=== PATIENT | female | born 1940 | race Caucasian/White ===

== ENCOUNTER 2019-10-23 02:57 | Inpatient (IN) ==
[2019-10-23] MEDS ORDERED: FENTANYL IV ONE (03:08)
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
[2019-10-23 04:06] LABS: BASO# 0.03 X1000 (0.0-0.2); BASO% 0.3 % (0.0-0.8); EOS# 0.05 X1000 (0.0-0.7); EOS% 0.5 % (0.0-10.0); HEMATOCRIT 43.1 % (37.0-47.0); HEMOGLOBIN 14.3 g/dL (12.0-16.0); IMM GRAN# 0.05 X1000 (0.0-0.04); IMM GRAN% 0.5 % (0.0-0.5); LYMPH# 1.03 X1000 (1.2-3.4); LYMPH% 9.3 % (20.5-51.1); MCH 32.6 PG (27-31); MCHC 33.2 g/dL (33-37); MCV 98.2 FL (81-99); MONO# 0.64 X1000 (0.11-0.59); MONO% 5.8 % (1.7-9.3); MPV 10.1 FL (7.4-10.4); NEUT# 9.31 X1000 (1.4-6.5); NEUT% 83.6 % (42.2-75.2); PLT 205 X1000 (130-400); RBC 4.39 XMIL (4.2-5.4); RDW 12.2 % (11.5-14.5); WBC 11.11 X1000 (4.8-10.8)
[2019-10-23 04:16] LABS: INR 0.98; PROTIME 13.1 Seconds (11.0-16.0); PTT 29.4 Seconds (22.3-41.8)
[2019-10-23] MEDS ORDERED: TYLENOL LIQUID PO ONE (04:32)
[2019-10-23] MEDS ORDERED: LASIX IV ONE (04:38)
[2019-10-23] MEDS ORDERED: KLOR-CON PO ONE (04:39)
[2019-10-23 04:55] LABS: ALB/GLOB RATIO 1.7; ALBUMIN 4.4 g/dL (3.5-5.0); ALKALINE PHOSPHATASE 80 U/L (32-104); BUN 9 mg/dL (8-22); CALCIUM 9.5 mg/dL (8.8-10.2); CREATININE 0.7 mg/dL (0.5-0.9); ESTIMATED GFR > 60; GLUCOSE 134 mg/dL (70-104); GOT 25 U/L (10-30); GPT 8 U/L (10-36); TCO2 28 mmol/L (25-35); TOTAL BILIRUBIN 0.48 mg/dL (0.20-1.00)
[2019-10-23 05:00] LABS: CHLORIDE 99 mmol/L (98-107); POTASSIUM 4.1 mmol/L (3.5-5.1); SODIUM 141 mmol/L (136-145)
[2019-10-23 05:06] LABS: AGAP 28; COSMO 282
[2019-10-23] MEDS ORDERED: DILAUDID IV ONE (05:08)
[2019-10-23 05:25] LABS: URINE SOURCE CATH
--- NOTE | 2019-10-23 05:29 | HISTORY AND PHYSICAL ---
REASON FOR ADMISSION: Right hip pain following a fall today. HISTORY OF PRESENT ILLNESS: Ms. Erica Shepard is an 79-year-old white woman who has no prior medical history of note, other than breast cancer status post bilateral mastectomy. She states that she was walking down her malhotra, which was poorly lit, and she missed her footing, fell and landed on her right side and hit her head. She denies any loss of consciousness following the fall. No antecedent cardiorespiratory symptoms before or subsequent to the fall. She managed to crawl to get her phone, called EMS and they brought her in to our facility for further evaluation. On arrival here, right hip x-ray showed a right intertrochanteric hip fracture. Dr. Clark, the orthopedic surgeon, was notified and will see patient later today. REVIEW OF SYSTEMS: The patient's only complaint is right hip pain, which was sustained immediately after the fall and she was unable to get up as a consequence of this. She also complains of vaginal pain, but no bleeding or discharge for the last several weeks. No genitourinary complaints. Other complaints of note are constipation. Otherwise, no cardiorespiratory, neurological complaints before or since this fall. ALLERGIES: No known allergies. MEDICATIONS: None other than p.r.n. MiraLAX. FAMILY HISTORY: Notable for heart disease, COPD, prostate cancer. SURGICAL HISTORY: She has had bilateral mastectomy,cholecystectomy and a right lobectomy. SOCIAL HISTORY: Lives alone. Does not smoke, drink, or use illicit drugs. LAB WORK: Chest film shows borderline increased vascular markings. X-ray for hip, see above. EKG is pending. Chemistries pending. White count is 11,000, hemoglobin and hematocrit 14 and 43, platelets 205,000; 83% neutrophils. PHYSICAL EXAM: VITAL SIGNS: Blood pressure 177/93, heart rate 105, respiratory rate 19, temperature is 98.9 degrees, she is 97% on room air. GENERAL: She is an elderly white female who appears younger than stated age. She is alert and oriented to person, place, time. Normal mood and affect. HEENT: Head is normocephalic, atraumatic. Eyes, CRUZ, EOMI. She is anicteric. Not pale. ENT and oropharyngeal exam is grossly normal. No central cyanosis noted. NECK: Supple. No JVD or carotid bruit. No thyromegaly. CHEST: Clear with auscultation, good air entry in both lung aviles. CARDIOVASCULAR: First, 2nd, and 3rd heart sounds are heard. Questionable diastolic murmur also heard. Rhythm is regular. ABDOMEN: Protuberant, soft. No tenderness or megaly. Bowel sounds are hypoactive. RECTAL: Deferred at this time. EXTREMITIES: No edema, clubbing, or peripheral cyanosis. Good distal pulse volumes, regular, symmetrical. NEUROLOGICAL: No gross focal. The patient is able to move her toes, dorsiflex and plantar flex her feet. SKIN: Intact. No breakdown, lesion, erythema. MUSCULOSKELETAL: Shows slightly externally rotated right lower extremity with slight shortening of said extremity. ASSESSMENT: At this time is 1. Right hip fracture. 2. Elevated blood pressure, probably hypertension. 3. S3 gallop, query significance. PLAN: Dr. Clark, the orthopedic surgeon, has been notified and will see patient later today. Keep patient NPO in anticipation for hip surgery. In the interim, patient will be treated symptomatically for pain and possible emesis. Bowel regimen was instituted. Please follow EKG and if the patient still has noticeable S3 gallop and a possible murmur, an echocardiogram to be done perioperatively. Please follow proBNP that was just ordered. Other than the grossly abnormal EKG and troponin, I do not see any need for any delaying surgery in this patient. Also, if the patient develops new significant cardiorespiratory symptoms, this may be a indication for delayed surgery also. cc: MD Lawanda Aguilar NP
[2019-10-23 05:32] LABS: BILIRUBIN URINE NEGATIVE (NEGATIVE); BLOOD URINE NEGATIVE (NEGATIVE); COLOR STRAW; GLUCOSE URINE NEGATIVE (NEGATIVE); KETONE URINE NEGATIVE (NEGATIVE); LEUKOCYTES URINE NEGATIVE (NEGATIVE); NITRITE URINE NEGATIVE (NEGATIVE); PROTEIN URINE NEGATIVE (NEGATIVE); SP GRAVITY URINE 1.006; TURBIDITY URINE CLEAR (CLEAR); UROBILINOGEN URINE NORMAL (NORMAL)
[2019-10-23 05:33] LABS: UR EPITHELIAL CELLS <10 /HPF (<10); URINE BACTERIA NEGATIVE /HPF; URINE RBC <10 /HPF (<10); URINE WBC <10 /HPF (<10)
--- NOTE | 2019-10-23 05:43 | Diag Imaging Result Doc PS360 ---
EXAM: CHEST-PORTABLE HISTORY: fall TECHNIQUE: Single view COMPARISON: 01/26/2019 FINDINGS: The lungs are well expanded. No contusion. No pneumothorax. The heart is not enlarged. The vessels are not distended. There are no infiltrates. No effusion identified. There are surgical clips in the right axilla. The posterior right sixth rib has been removed. IMPRESSION: No injury Electronically signed by Roverto Rojas 10/23/2019 5:41 AM
--- NOTE | 2019-10-23 05:52 | Diag Imaging Result Doc PS360 ---
EXAM: XRAY HIP UNILATERAL RT HISTORY: fall TECHNIQUE: Two views COMPARISON: None. FINDINGS: There is a femoral neck fracture. The femoral head remains in the acetabulum. The femoral shaft is rotated and superiorly placed. IMPRESSION: Femoral neck fracture. Electronically signed by Roverto Rojas 10/23/2019 5:49 AM
[2019-10-23] MEDS ORDERED: NS 1,000 ML IV SCH ×2 (06:38→14:15)
[2019-10-23] MEDS ORDERED: TYLENOL PO SCH (06:38)
[2019-10-23] MEDS ORDERED: MORPHINE IV PRN ×4 (06:38→14:15)
[2019-10-23] MEDS ORDERED: ZOFRAN IV PRN ×2 (06:38→14:15)
[2019-10-23] MEDS ORDERED: KEFZOL 2 GM/D5W 2 GM/50 ML IVPB IV ONE (08:05)
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
--- NOTE | 2019-10-23 08:27 | EKG Report ---
Test Performed on : 10/23/2019 05:49:31 AM Test Reason : preop Blood Pressure : / mmHG Vent. Rate : 115 BPM Atrial Rate : 115 BPM P-R Int : 160 ms QRS Dur : 134 ms QT Int : 358 ms P-R-T Axes : 031 -58 046 degrees QTc Int : 495 ms Sinus tachycardia. Possible Left atrial enlargement Right bundle branch block Left anterior fascicular block Bifascicular block Left ventricular hypertrophy Abnormal ECG No previous ECGs available Unconfirmed Result
[2019-10-23] MEDS ORDERED: DURAMORPH ONE (11:36)
[2019-10-23] MEDS ORDERED: TORADOL ONE (11:36)
[2019-10-23] MEDS ORDERED: CYKLOKAPRON 1,000 MG/NS 2,000 MG/200 ML IVPB ONE (11:36)
[2019-10-23] MEDS ORDERED: MARCAINE 0.25% PF/EPI 1:200,000 ONE (11:36)
[2019-10-23] MEDS ORDERED: SODIUM CHLORIDE 0.9% ONE (11:38)
[2019-10-23] MEDS ORDERED: EXPAREL 1.3% ONE (11:38)
[2019-10-23] MEDS ORDERED: DIPRIVAN 1% ONE ×2 (12:09→13:24)
[2019-10-23] MEDS ORDERED: KEFZOL 1 GM/D5W 2 GM/100 ML IVPB ONE (12:29)
[2019-10-23] MEDS ORDERED: VERSED ONE (12:31)
[2019-10-23] MEDS ORDERED: ZOFRAN ONE (13:12)
[2019-10-23] MEDS ORDERED: OFIRMEV 1000 MG/ISOTONIC SOLN 1,000 MG/100 ML BOTTLE ONE (13:12)
[2019-10-23] MEDS ORDERED: DECADRON ONE (13:12)
--- NOTE | 2019-10-23 13:41 | PROGRESS NOTE ---
DATE: 10/23/2019 INTERVAL HISTORY: Ms. Shepard, on review of vitals, remained tachycardic. SUBJECTIVE: Ms. Shepard is in surgery, I could not see her and assess a review of systems or perform physical examination. OBJECTIVE: Currently vitals show temperature 98.1 degrees, pulse 111, respiratory rate 20, blood pressure 162/81. She is saturating 95% on room air. I could not perform a physical examination. LABORATORY DATA: On review of the labs she had a WBC of 11,000, hemoglobin 14.3, platelets 205,000. Her electrolytes were largely normal except glucose of 134. Her proBNP level was 155. Microbiology, no positive data. IMAGING: No new imaging except a hip x-ray yesterday had right-sided femoral neck fracture. ASSESSMENT AND PLAN: Mechanical fall leading to right-sided femoral neck fracture. Orthopedic team has taken the patient to the operating room for likely right femoral hemiarthroplasty. I will keep the patient on gentle intravenous fluids and would anticipate to start her on deep venous thrombosis prophylaxis as per orthopedic team's recommendations. She is currently on intravenous morphine for pain. PERIOPERATIVE CARDIOVASCULAR RISK ASSESSMENT: Ms. Shepard's RCRI risk score is more than 1 considering her S3 gallop, and she had proBNP more than 100. I will check EKG in the PACU or when she is back from the surgery, and we will get troponins every 24 hours starting tomorrow morning. In future, she may need echocardiogram based on examination, which is pending. DISPOSITION: Monitor patient inside the hospital. Subjective: Ms Shepard denies chest pain, shortness of breath or cough. General: In no distress heent: Oral cavity is moist. Lungs: Air entry bilaterally equal. No wheeze, rhonchi, or crackles. Cardiovascular: S1, S2 normal.. No murmur, rub, or gallop. Abdomen: Soft. No tenderness. Hypoactive bowel sounds. Extremities: No lower extremity edema. Right lower extremity has lateral dressing on the thigh. She is able to wiggle toes bilaterally. Intact dorsalis pedis pulses bilaterally. cc: Crispin Wolf MD MTDD
[2019-10-23] MEDS ORDERED: ULTRAM PO PRN (14:08)
[2019-10-23] MEDS ORDERED: OXY IR PO PRN (14:15)
[2019-10-23] MEDS ORDERED: MILK OF MAGNESIA PO PRN (14:15)
[2019-10-23] MEDS ORDERED: ZOFRAN ODT PO PRN (14:15)
--- NOTE | 2019-10-23 14:37 | OPERATIVE NOTE ---
PROCEDURE DATE: 10/23/2019 PREOPERATIVE DIAGNOSIS: Right displaced femoral neck fracture. POSTOPERATIVE DIAGNOSIS: Right displaced femoral neck fracture. PROCEDURE PERFORMED: Right bipolar hemiarthroplasty using a DePuy size 7 standard offset with a + 1.5 neck length, 28 mm head and a 48 mm bipolar head. ANESTHESIA: Spinal. SURGEON: Dereck Clark MD. REGULATORY AFFAIRS COORDINATOR: Dwayne Fabian RN. COMPLICATIONS: None. ESTIMATED BLOOD LOSS: Minimal. DESCRIPTION OF PROCEDURE: The patient was brought to the operative suite and placed in supine position under satisfactory administration of spinal anesthesia. The patient was placed on the OSI table in the usual position for right hip. The right hip was then prepped and draped in the usual sterile fashion. A longitudinal incision was made beginning 3 cm distal and 3 cm lateral to the anterior superior iliac spines to a distance slightly lateral to 8 cm. Dissected sharply through the skin and subcutaneous tissue down to the tensor fascia. The tensor fascia was incised, dissected bluntly down to the deep tensor fascia. Deep tensor fascia was incised and circumflex vessels electrocauterized exposing the anterior capsule. T-capsulotomy was performed exposing the femoral neck. Femoral neck cut was made with oscillating saw. The femoral head and neck were removed with a power corkscrew. It was measured to be a 48. A 48 trial was found to be an excellent fit. Attention was directed to the femur. It was externally rotated, extended, adducted, and elevated out of the wound with the hook on the OSI bed. The lateral neck was rongeured. The canal was serially broached to a size 7. A size 7 standard offset +1.5, 28 mm head with a 48 mm bipolar was trialed, found be excellent fit and fill stem offset and stability of the hip. The trial was then removed. The definitive stem was seated onto the Park taper and then the 28 mm head with a 48 mm bipolar was seated onto the Park taper, and then the hip was again reduced. It was again found to be in excellent position. The anterior capsule was repaired with 0 V-LOC. The hip was copiously irrigated with normal saline containing irrigant and Vashe irrigation, and then the tensor capsule was repaired with 0 V-LOC suture. The hip was copiously infiltrated with Exparel, including the posterior capsule, anterior capsule, intramuscular and subcutaneous tissue. The hip was closed with 2-0 Vicryl, 4-0 Monocryl and Prineo dressing. The patient tolerated the procedure well without complications. At the end of the procedure, all counts correct x2. The patient was transferred to the recovery room in stable condition. cc: Dereck Clark MD
--- NOTE | 2019-10-23 16:51 | EKG Report ---
Test Performed on : 10/23/2019 4:11:18 PM Test Reason : Please do an EKG after surgery today Blood Pressure : / mmHG Vent. Rate : 104 BPM Atrial Rate : 104 BPM P-R Int : 186 ms QRS Dur : 134 ms QT Int : 372 ms P-R-T Axes : 055 -57 000 degrees QTc Int : 489 ms Sinus tachycardia. Right bundle branch block Left anterior fascicular block Bifascicular block Moderate voltage criteria for LVH, may be normal variant T wave abnormality, consider lateral ischemia Abnormal ECG When compared with ECG of 23-OCT-2019 05:49, (Unconfirmed) T wave inversion now evident in Inferior leads T wave inversion now evident in Anterolateral leads Confirmed by Gretchen SMALL, Joaquin Vela ([id number]) on 10/25/2019 9:25:11 AM
[2019-10-23] MEDS: MIRALAX PO SCH (18:08)
[2019-10-23] MEDS: SENOKOT PO SCH ×2 (18:13→21:07)
[2019-10-23] MEDS ORDERED: ELAVIL PO SCH (21:00)
[2019-10-23] MEDS: KEFZOL 2 GM/D5W 2 GM/50 ML IVPB IV SCH (21:07)
[2019-10-23] MEDS: PERIDEX MT SCH (21:07)
[2019-10-23] MEDS: TYLENOL PO SCH (21:07)
[2019-10-23] MEDS: ZOCOR PO SCH (21:08)
[2019-10-23] MEDS: COLACE PO SCH (21:08)
[2019-10-24] MEDS: NEURONTIN PO SCH ×3 (03:26→20:31)
[2019-10-24] MEDS: KEFZOL 2 GM/D5W 2 GM/50 ML IVPB IV SCH (05:39)
[2019-10-24] MEDS ORDERED: LOVENOX SUBQ SCH ×2 (06:00→17:30)
[2019-10-24] MEDS ORDERED: PRILOSEC PO SCH (07:00)
[2019-10-24 07:06] LABS: HEMATOCRIT 35.8 % (37.0-47.0); HEMOGLOBIN 11.8 g/dL (12.0-16.0); IMM GRAN# 0.03 X1000 (0.0-0.04); IMM GRAN% 0.2 % (0.0-0.5); LYMPH# 0.75 X1000 (1.2-3.4); LYMPH% 5.6 % (20.5-51.1); MCH 32.6 PG (27-31); MCV 98.9 FL (81-99); MONO# 0.69 X1000 (0.11-0.59); MONO% 5.2 % (1.7-9.3); MPV 10.1 FL (7.4-10.4); NEUT# 11.89 X1000 (1.4-6.5); PLT 221 X1000 (130-400); RBC 3.62 XMIL (4.2-5.4); RDW 12.2 % (11.5-14.5); WBC 13.36 X1000 (4.8-10.8)
[2019-10-24 07:26] LABS: AGAP 13; BUN 12 mg/dL (8-22); CALCIUM 8.7 mg/dL (8.8-10.2); CHLORIDE 101 mmol/L (98-107); COSMO 276; CREATININE 0.8 mg/dL (0.5-0.9); ESTIMATED GFR > 60; GLUCOSE 150 mg/dL (70-104); SODIUM 137 mmol/L (136-145); TCO2 23 mmol/L (25-35)
[2019-10-24 07:32] LABS: LYMPHS 8 % (21-51); MONO 4 % (1-9); SEGS 86 % (42-75)
[2019-10-24] MEDS: PRILOSEC PO SCH (08:41)
[2019-10-24] MEDS: OXY IR PO PRN ×2 (08:41→20:41)
[2019-10-24] MEDS: CENTRUM SILVER PO SCH (08:41)
[2019-10-24] MEDS: PEPCID PO SCH (08:42)
[2019-10-24] MEDS: CALTRATE 600 PO SCH (08:42)
[2019-10-24] MEDS: ASPIRIN PO SCH (08:42)
[2019-10-24] MEDS: TYLENOL PO SCH ×3 (08:42→20:30)
[2019-10-24] MEDS: PERIDEX MT SCH ×2 (08:44→20:32)
[2019-10-24] MEDS: COLACE PO SCH ×2 (08:44→20:31)
[2019-10-24] MEDS: MIRALAX PO SCH ×2 (08:44→17:19)
[2019-10-24] MEDS: SENOKOT PO SCH ×2 (08:44→20:31)
[2019-10-24] MEDS ORDERED: ELAVIL PO SCH (09:00)
[2019-10-24] MEDS ORDERED: ZOCOR PO SCH (09:00)
[2019-10-24] MEDS ORDERED: ARIMIDEX PO SCH (09:00)
--- NOTE | 2019-10-24 09:25 | PROGRESS NOTE ---
DATE: 10/24/2019 INTERVAL HISTORY: No acute events overnight. Ms. Shepard subjectively complains of right- sided earache and headache. She states she could not sleep yesterday night. She denies any chest pain or shortness of breath or cough. She is complaining of some discomfort at the site of Esqueda catheter. REVIEW OF SYSTEMS: Negative for nausea. Negative for vomiting. Negative for abdominal pain. Negative for tingling or numbness of her extremities. VITALS: Temperature 98.1 degrees, pulse 89, respiratory rate 18, blood pressure 130/56, she is saturating 94% on room air. PHYSICAL EXAMINATION: Ms. Shepard is not in any acute distress. No pallor, cyanosis, clubbing, or icterus. Lungs: Air entry bilaterally equal. No wheeze, rhonchi, or crackles. Cardiovascular: S1 normal S2 is split. Not tachycardic. No murmur, rub, or gallop. Abdomen: Obese, soft, nontender. No lower extremity edema. She has a urine catheter. A right- sided proximal lateral thigh incision is dressed. I could not see any soaking. She is able to wiggle her toes bilaterally. She has intact dorsalis pedis and posterior tibial pulses bilaterally, and capillary refill time is less than 2 seconds. She is alert and oriented x3. On the right ear examination, there are flecks of wax without any pus or blood. LABS: Suggestive of WBC 13,000, hemoglobin 11.8, platelets 221,000. Her BUN is 12, creatinine 0.8. She does have a jump in her troponin to 96 this morning. She denies chest pain. MICROBIOLOGY: No new data. IMAGING: no new imaging. ASSESSMENT AND PLAN: 1. Mechanical fall leading to right-sided femoral neck fracture, status post right bipolar hemiarthroplasty on October 22. Continue pain management and deep venous thrombosis prophylaxis as per orthopedic team's recommendations. Physical therapy and home health care social worker, rehab have been ordered. Stop home Anastrozole as it may increase the risk of post- operative DVT. 2. Perioperative cardiovascular risk modification. She is already on atorvastatin ans aspirin. She does have baseline right bundle branch block which is likely responsible for splitting of S2 heart sounds on examination. I did not see any jugular venous distention or lower extremity edema to suspect congestive heart failure. I will continue to monitor daily troponin as her RCRI score was 1 and she had proBNP>100 on admission. Get EKG as required. 3. Others. Continue simvastatin for hyperlipidemia; amitriptyline for neuropathic pain; her home aspirin; calcium carbonate; gabapentin for peripheral neuropathy, omeprazole for gastroesophageal reflux disease. 4. Disposition. Awaiting home health care social worker and rehab placement. Plan of care discussed with Ms. Shepard. Her questions have been answered. ADDENDUM 1630PM: Her troponin in the morning was elevated. She denies chest pain, shortness of breath or palpitation. I got another EKG which has worsening T Wave inversion in inferior and lateral leads. On my repeat evaluation she continues to deny any chest pain what so ever. I will treat it as post-operative myocardial ischemia with possible NSTEMI. Give her Stat dose of aspirin. Start her on therapeutic enoxaparin. Trend troponin, get morning EKG, ECHO and cardiology consult. I discussed this plan with the patient and she is in agreement. cc: Crispin Wolf MD MTDD
--- NOTE | 2019-10-24 09:35 | ORTHOPAEDICS PROGRESS NOTE ---
DATE: 10/24/2019 SUBJECTIVE: Erica Shepard is an 79-year-old female who is postoperative day 1 from a right bipolar hemiarthroplasty. She has no complaints. OBJECTIVE: She is a well-developed, well-nourished female. She is alert and cooperative with the examination. Her wound is clean, dry, and intact. Her hemoglobin is 11.8, her hematocrit is 35.8. ASSESSMENT: Stable right bipolar hemiarthroplasty. PLAN: We will begin working with physical therapy today. She will probably go to rehab later in the week. cc: Dereck Clark MD
--- NOTE | 2019-10-24 16:17 | EKG Report ---
Test Performed on : 10/24/2019 4:05:31 PM Test Reason : Post operative follow up Blood Pressure : / mmHG Vent. Rate : 077 BPM Atrial Rate : 077 BPM P-R Int : 160 ms QRS Dur : 138 ms QT Int : 442 ms P-R-T Axes : 007 -53 241 degrees QTc Int : 500 ms Sinus rhythm. with blocked premature atrial complexes. Right bundle branch block Left anterior fascicular block Bifascicular block Minimal voltage criteria for LVH, may be normal variant Marked T wave abnormality, consider inferolateral ischemia Abnormal ECG When compared with ECG of 23-OCT-2019 16:11, (Unconfirmed) premature atrial complexes. are now present T wave inversion more evident in Inferior leads T wave inversion more evident in Lateral leads Confirmed by Gretchen SMALL, Joaquin Vela ([id number]) on 10/25/2019 9:25:46 AM
[2019-10-24] MEDS ORDERED: ASPIRIN PO STA (17:01)
[2019-10-24] MEDS: LOPRESSOR PO SCH ×2 (17:16→20:42)
[2019-10-24] MEDS: ZOCOR PO SCH (20:31)
[2019-10-25] MEDS: TYLENOL PO SCH ×4 (05:23→19:54)
[2019-10-25] MEDS: LOVENOX SUBQ SCH (06:56)
[2019-10-25 06:59] LABS: BASO# 0.04 X1000 (0.0-0.2); BASO% 0.3 % (0.0-0.8); EOS# 0.21 X1000 (0.0-0.7); EOS% 1.8 % (0.0-10.0); HEMOGLOBIN 10.9 g/dL (12.0-16.0); IMM GRAN# 0.03 X1000 (0.0-0.04); IMM GRAN% 0.3 % (0.0-0.5); LYMPH% 19.8 % (20.5-51.1); MCH 32.5 PG (27-31); MCHC 32.1 g/dL (33-37); MCV 101.5 FL (81-99); MONO% 9.5 % (1.7-9.3); MPV 10.4 FL (7.4-10.4); NEUT# 7.93 X1000 (1.4-6.5); NEUT% 68.3 % (42.2-75.2); PLT 181 X1000 (130-400); RBC 3.35 XMIL (4.2-5.4); RDW 12.4 % (11.5-14.5); WBC 11.61 X1000 (4.8-10.8)
[2019-10-25 07:26] LABS: AGAP 11; BUN 21 mg/dL (8-22); CALCIUM 8.7 mg/dL (8.8-10.2); CHLORIDE 103 mmol/L (98-107); COSMO 279; CREATININE 0.7 mg/dL (0.5-0.9); ESTIMATED GFR > 60; GLUCOSE 102 mg/dL (70-104); MAGNESIUM 1.8 mg/dL (1.5-2.7); POTASSIUM 4.3 mmol/L (3.5-5.1); SODIUM 138 mmol/L (136-145); TCO2 24 mmol/L (25-35)
--- NOTE | 2019-10-25 07:52 | EKG Report ---
Test Performed on : 10/25/2019 07:31:19 AM Test Reason : Follow up EKG Blood Pressure : / mmHG Vent. Rate : 083 BPM Atrial Rate : 083 BPM P-R Int : 170 ms QRS Dur : 136 ms QT Int : 424 ms P-R-T Axes : 045 -52 239 degrees QTc Int : 498 ms Sinus rhythm. with premature atrial complexes. Right bundle branch block Left anterior fascicular block Bifascicular block Minimal voltage criteria for LVH, may be normal variant T wave abnormality, consider inferolateral ischemia Abnormal ECG When compared with ECG of 24-OCT-2019 16:05, (Unconfirmed) No significant change was found Confirmed by Gretchen SMALL, Joaquin Vela ([id number]) on 10/25/2019 9:26:29 AM
[2019-10-25] MEDS: ASPIRIN PO SCH (08:45)
[2019-10-25] MEDS: PEPCID PO SCH (08:45)
[2019-10-25] MEDS: LOPRESSOR PO SCH ×2 (08:45→22:41)
[2019-10-25] MEDS: COLACE PO SCH ×2 (08:45→22:42)
[2019-10-25] MEDS: SENOKOT PO SCH ×2 (08:45→22:42)
[2019-10-25] MEDS: NEURONTIN PO SCH ×2 (08:45→22:41)
[2019-10-25] MEDS: PERIDEX MT SCH ×2 (08:45→22:41)
[2019-10-25] MEDS: CALTRATE 600 PO SCH (08:45)
[2019-10-25] MEDS: MIRALAX PO SCH (08:45)
[2019-10-25] MEDS: CENTRUM SILVER PO SCH (08:46)
--- NOTE | 2019-10-25 11:14 | CARDIOLOGY CONSULTATION ---
DATE: 10/25/2019 INDICATION FOR CONSULT: Abnormal EKG, elevated cardiac enzymes. CHIEF COMPLAINT ON PRESENTATION: Right hip pain following a fall. HISTORY OF PRESENT ILLNESS: Ms. Shepard is an 79-year-old, white female with a history of hyperlipidemia and breast cancer. She had a fall occurring on 10/23/2019. She got up out of bed. She did not have her usual night light lit. She apparently stumbled, fell, had some right hip pain. She ultimately was brought into the ER and was found to have a femoral neck fracture on the right. She subsequently underwent operative intervention on 10/23/2019. It was noted on four separate occasions that she had systolics in the 70s during the operative course. The patient has not had any postoperative chest pain or shortness of breath. She has no history of coronary disease. She had a left heart catheterization performed in 2009 that noted no angiographic disease. 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 PAST MEDICAL HISTORY: 1. Hyperlipidemia. 2. Breast cancer, status post mastectomies. 3. History of lung nodule. 4. Recent right femoral neck fracture. SOCIAL HISTORY: She denies any current tobacco use. Lives alone. No alcohol. FAMILY HISTORY: Significant for hypertension. REVIEW OF SYSTEMS: A 10-system review of systems is negative, except for those things mentioned in the HPI. PHYSICAL EXAMINATION: Vital Signs: She is afebrile, heart rate 78, blood pressure 134/65. General: She is in no acute distress. HEENT: Oropharynx is moist. Poor dentition. Eye examination shows pink conjunctivae, white sclerae. Neck: No obvious thyromegaly or thyroid tenderness. Cardiovascular: She is noted to be in a regular rate and rhythm. She has no obvious murmurs. She has no S3. She has no lower extremity edema. Chest: Sounds clear to auscultation bilaterally. She has no increased work of breathing. Abdomen: Soft, nontender. She has no obvious organomegaly. Skin: Warm and dry throughout without any rashes. Neurological: Moving all extremities well. She has no lateralizing deficits. PERTINENT DATA: She had an EKG on 10/23/2019 at 5:49 showing a right bundle-branch block, left anterior fascicular block. This was noted to be similar to her previous that was on 10/23/2019. Her next EKG on 10/23/2019 at 1611 shows sinus rhythm, rate of 104 beats per minute, right bundle- branch block, left anterior fascicular block. She has the initiation of some T-wave inversions laterally. Next EKG on 10/24/2019 at 1605 showed sinus rhythm. Notably, she had some T-wave inversions somewhat diffusely, more prominent in the left lateral leads. Final EKG tracing all reviewed by me. On 10/25/2019 at 7:31, sinus rhythm, right bundle-branch block, left anterior fascicular block. Again, prominent T-wave inversions noted in the lateral leads. Her lab data shows white count 11.6, hematocrit 34, her preop hematocrit was 43, platelet count 181,000. Her sodium is 138, potassium 4.3, BUN 21, creatinine 0.7. Her initial high-sensitivity troponin was 16, subsequently 96, then after it has trended down to 45. TSH 0.6. ASSESSMENT: Ms. Shepard is an 79-year-old female who presented with a right hip fracture. PLAN: She has had EKG changes postop, as well as enzyme elevations. These are likely related to an intraoperative ischemia secondary to intraoperative hypotension. Notably, she had systolics in the 70s noted four different times, so roughly this persisted for around 15 to 20 minutes during the operation. We will proceed with myocardial perfusion imaging in the morning. If this is unremarkable, she could be discharged from our standpoint. I will not make any changes in her medications presently. cc: Brendan Najera MD
--- NOTE | 2019-10-25 11:49 | ORTHOPAEDICS PROGRESS NOTE ---
DATE: 10/25/2019 SUBJECTIVE DATA: Ms. Shepard is sitting up in bed. She states she ambulated yesterday and got up to the chair multiple times. She says her pain is tolerable. OBJECTIVE DATA: Right Lower Extremity Examination: Her incision is clean, dry, and intact. There is very little bloody shadowing on the dressing. She is able to plantar and dorsiflex the ankle. She is able to activate all quad muscles. ASSESSMENT: Status post right bipolar hemiarthroplasty. PLAN: Ms. Shepard has been working with physical therapy. She states she has been mobilizing well. Her pain is under control. It looks like the plan is to get her to [facility] in [place]. We are on board with this. She will follow up as an outpatient in about 2 weeks from discharge. Please let us know if there are any questions or concerns. Dictated by ELLI Blue for Dereck Clark MD cc: ELLI Blue MD
[2019-10-25] MEDS: OXY IR PO PRN (12:27)
--- NOTE | 2019-10-25 16:58 | PROGRESS NOTE ---
DATE: 10/25/2019 SUBJECTIVE: Patient has no major complaints. OBJECTIVE: Vital Signs: Blood pressure 132/84, heart rate 78, respiratory rate 18, temperature 98.4 degrees, 96% on room air. Cardiovascular: Regular rate and rhythm. Pulmonary: Bilateral breath sounds clear to auscultation. Gastrointestinal: Soft, nontender, nondistended. Bowel sounds are positive. LABORATORY DATA: White count 11, hemoglobin and hematocrit 10 and 34, platelets 181,000. Basic was normal. PROBLEM LIST: 1. Right-sided femoral neck fracture status post bipolar hemiarthroplasty 10/23/2019, postop day 2. She seems to be doing okay. 2. Elevated troponin. She had a revised cardiac risk index score, so electrocardiogram was obtained. Anyway, it turned into an ischemic workup after her surgery. Cardiology is planning for a stress test, but they completed half today resting, and she will do the ischemic portion tomorrow. They felt like this is associated with perioperative hypotension, so we will continue to follow. DISPOSITION: She is looking at a swing bed at [facility], so once we have cleared her cardiac aparicio, I think she should be able to progress there. cc: Kev Rdz MD
[2019-10-25] MEDS: ZOCOR PO SCH (22:42)
[2019-10-26] MEDS: TYLENOL PO SCH ×4 (03:25→21:43)
--- NOTE | 2019-10-26 05:36 | ECHO REPORT ---
ORDER DATE: 10/24/2019 MEASUREMENTS: 1. Septal thickness 1.4. 2. Left ventricular internal diameter in diastole 4.8. 3. Posterior wall thickness 1.1. 4. Left ventricular internal diameter in systole 3.5. 5. Aortic root 3.4. 6. Left atrium 2.9. SUMMARY: 1. Fair quality study. 2. Aortic valve is trileaflet and opens normally on 2-dimensional images. Peak gradient across aortic valve is less than 10 mmHg. Mitral, tricuspid, and pulmonic valves are without evidence of structural abnormality with very mild mitral regurgitation, mild tricuspid regurgitation, and trace pulmonic insufficiency. Estimated systolic PA pressure by Doppler is 40 to 45 mmHg suggesting mild to moderate pulmonary hypertension. Aortic root is normal in size. 3. Normal left ventricular chamber size with borderline concentric left ventricular hypertrophy is demonstrated. Estimated left ventricular ejection fraction approximately 55%. No regional wall motion abnormality can be appreciated. Left atrium, right atrium, and right ventricle are normal in size with grossly preserved right ventricular systolic function. 4. Tiny posterior pericardial effusion demonstrated. 5. Appearance of inferior vena cava suggests elevation in central venous pressure. CONCLUSIONS: 1. Very mild mitral regurgitation. 2. Mild tricuspid regurgitation with mild to moderate pulmonary hypertension by Doppler. 3. Borderline concentric left ventricular hypertrophy with estimated left ejection fraction of approximately 55%. 4. Tiny posterior pericardial effusion. 5. Elevated central venous pressure suggested. cc: MD Crispin Wang MD
[2019-10-26 06:30] LABS: BASO# 0.08 X1000 (0.0-0.2); BASO% 0.8 % (0.0-0.8); EOS# 0.33 X1000 (0.0-0.7); EOS% 3.2 % (0.0-10.0); HEMOGLOBIN 11.5 g/dL (12.0-16.0); IMM GRAN# 0.08 X1000 (0.0-0.04); IMM GRAN% 0.8 % (0.0-0.5); LYMPH# 1.88 X1000 (1.2-3.4); LYMPH% 18.3 % (20.5-51.1); MCH 32.9 PG (27-31); MCHC 32.9 g/dL (33-37); MONO# 0.97 X1000 (0.11-0.59); MONO% 9.5 % (1.7-9.3); MPV 10.3 FL (7.4-10.4); NEUT# 6.92 X1000 (1.4-6.5); NEUT% 67.4 % (42.2-75.2); PLT 195 X1000 (130-400); RDW 12.3 % (11.5-14.5); WBC 10.26 X1000 (4.8-10.8)
[2019-10-26] MEDS: LOVENOX SUBQ SCH (06:34)
[2019-10-26] MEDS ORDERED: LEXISCAN ONE (08:24)
[2019-10-26] MEDS: PRILOSEC PO SCH (09:27)
--- NOTE | 2019-10-26 10:13 | ORTHOPAEDICS PROGRESS NOTE ---
DATE: 10/26/2019 SUBJECTIVE: Erica Shepard is an 79-year-old female who underwent a right bipolar hemiarthroplasty on Friday. Her postoperative course has been marked by EKG changes, and they are working her up for possible intraoperative cardiac ischemia. She has had no complaints. No chest pain or shortness of breath. She has been doing well. OBJECTIVE: She has been able to ambulate 110 feet. Her wound is clean, dry, and intact. Her leg is neurovascularly intact. ASSESSMENT: Stable right bipolar hip. PLAN: She can go to rehab when cleared medically. She will be weightbearing as tolerated. She will follow up with me in 1 week. cc: Dereck Clark MD
[2019-10-26] MEDS: LOPRESSOR PO SCH ×2 (10:17→21:43)
[2019-10-26] MEDS: ASPIRIN PO SCH (10:18)
[2019-10-26] MEDS: CENTRUM SILVER PO SCH (10:18)
[2019-10-26] MEDS: CALTRATE 600 PO SCH (10:18)
[2019-10-26] MEDS: PERIDEX MT SCH ×2 (10:19→21:44)
[2019-10-26] MEDS: SENOKOT PO SCH ×2 (10:19→21:43)
[2019-10-26] MEDS: PEPCID PO SCH (10:19)
[2019-10-26] MEDS: MIRALAX PO SCH (10:19)
[2019-10-26] MEDS: COLACE PO SCH ×2 (10:19→21:44)
[2019-10-26] MEDS: NEURONTIN PO SCH ×2 (10:33→21:44)
[2019-10-26] MEDS: OXY IR PO PRN ×2 (12:49→21:44)
--- NOTE | 2019-10-26 13:56 | Diag Imaging Result Document ---
PROCEDURE NAME: MYOCARDIAL PERF SCAN, STR/REST - 10/25/2019 PROCEDURE: Lexiscan Cardiolite stress test. DESCRIPTION OF PROCEDURE: Lexiscan was infused per standard protocol. Baseline electrocardiogram revealed normal sinus rhythm. Left bundle branch block with left anterior hemiblock. Cardiolite was injected. Gated SPECT images were obtained in standard views. 36.6 mCi of Cardiolite was injected for the rest phase; 35.7 mCi of Cardiolite was injected for the stress phase in a 2 day protocol. Images were obtained. Images revealed chest wall and diaphragmatic attenuation. Images revealed normal left ventricular cavity size. There is large size, moderate grade fixed defect in the inferior wall and in the inferoapical wall associated with jessica-infarct ischemia in the inferoapical wall. The extent of jessica-infarct ischemia is small to moderate grade. Left ventricular ejection fraction by gated SPECT was 63%. There is apical and inferior wall hypokinesis. CONCLUSIONS: 1. No chest pain. 2. Negative Lexiscan stress electrocardiogram. 3. Myocardial perfusion images revealed normal left ventricular cavity size. 4. There is moderate to large size fixed defect in the inferior inferoapical wall diagnostic of scar associated with jessica-infarct ischemia in the inferoapical portion of the left ventricle. 5. Left ventricular ejection fraction by gated SPECT was 63%. There is inferior and apical hypokinesis. cc: MD Brendan John MD
--- NOTE | 2019-10-26 14:13 | CARDIOLOGY PROGRESS NOTE ---
DATE: 10/26/2019 SUBJECTIVE: Patient has not had any chest pain overnight. She has no physical complaints other than soreness in her hip. PHYSICAL EXAMINATION: Vital signs: She is afebrile, heart rate 98, blood pressure 149/67. General: She is in no acute distress. Cardiovascular: She sounds to be in a regular rate and rhythm. She has no murmurs. She has no S3. She has no lower extremity edema. Chest: Sounds clear bilaterally. She has no increased work of breathing. Abdomen: Soft, nontender. PERTINENT DATA: Her troponins have trended to a low of 16 on initial check, high of 96 on second check, and then they have trended down to 45. She has no more recent chemistry data than yesterday. Her hematocrit is 35. 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 Her ejection fraction is 55%, does not suggest any regional wall motion abnormalities. Her EKGs appear similar to what she has had previously. ASSESSMENT: Ms. Shepard is an 79-year-old female with hip fracture repair. She suffered a perioperative NM. PLAN: She has a fixed inferior defect with some jessica-infarct ischemia. This likely resulted in a supply-demand mismatch during her period of intraoperative hypotension. At this point, I would plan on titrating medicines. She was initiated on a beta heather this hospitalization. I would escalate that to 25 b.i.d. I would continue the aspirin. She is on a statin presently. At this point, she can follow up with me as an outpatient and we can continue with secondary risk factor modification. cc: Brendan Najera MD
--- NOTE | 2019-10-26 15:36 | PROGRESS NOTE ---
DATE: 10/26/2019 SUBJECTIVE: Patient has no major complaints. OBJECTIVE: Blood pressure is 149/67, heart rate 98, respiratory rate of 16, temperature 98.4 degrees.Cardiovascular: Regular rate and rhythm. Pulmonary: Bilateral breath sounds, clear to auscultation. GI: Soft, nontender, nondistended. Bowel sounds were positive. LABORATORY DATA: White count 10, hemoglobin and hematocrit 11 and 35, platelets 195,000. No basic today. PROBLEM LIST: 1. Right-sided femoral neck fracture, status post bipolar hemiarthroplasty. This is postop day 3. Ortho is following, she is stable for discharge. 2. Elevated troponin. She has had an ischemic workup. The myocardial perfusion tests says moderate defect but it was not reversible, it was scar, EF 63%. Cardiology felt no further workup needs to be pursued. This was related to hypotension and the plan is to discharge her to rehab when bed available. She has been placed on aspirin. She is on anticoagulation. She is on a beta heather. Anticipate discharge tomorrow. cc: Kev Rdz MD
[2019-10-26] MEDS ORDERED: ELAVIL PO SCH (21:00)
[2019-10-26] MEDS: ZOCOR PO SCH (21:43)
[2019-10-27] MEDS: TYLENOL PO SCH ×3 (02:51→13:25)
[2019-10-27] MEDS: LOVENOX SUBQ SCH (06:16)
[2019-10-27] MEDS: NEURONTIN PO SCH (08:49)
[2019-10-27] MEDS: PEPCID PO SCH (08:49)
[2019-10-27] MEDS: PERIDEX MT SCH (08:49)
[2019-10-27] MEDS: CALTRATE 600 PO SCH (08:50)
[2019-10-27] MEDS: LOPRESSOR PO SCH (08:50)
[2019-10-27] MEDS: CENTRUM SILVER PO SCH (08:50)
[2019-10-27] MEDS: ASPIRIN PO SCH (08:50)
[2019-10-27] MEDS ORDERED: ARIMIDEX PO SCH (09:00)
[2019-10-27 12:06] VITALS: BP 120/50
--- NOTE | 2019-10-27 12:09 | ORTHOPAEDICS PROGRESS NOTE ---
DATE: 10/27/2019 SUBJECTIVE: Erica Shepard is an 79-year-old female who is postoperative day 4 from a right bipolar hemiarthroplasty. She has no complaints. OBJECTIVE: She is a well-developed, well-nourished female. She is alert and oriented and cooperative with the exam. Her wound is clean, dry, intact without sign of infection. Her leg is neurovascularly intact. She has good early range of motion of her hip. She is ambulating with Physical Therapy. LABORATORY DATA: Her hematocrit is 35%. ASSESSMENT: Stable right bipolar hemiarthroplasty. PLAN: She can be discharged to rehab. She will follow up with me on 11/04/2019. cc: Dereck Clark MD
[2019-10-27] MEDS: OXY IR PO PRN (12:46)
--- NOTE | 2019-10-27 12:52 | DISCHARGE SUMMARY ---
ADMISSION DATE: 10/23/2019 DISCHARGE DATE: 10/27/2019 ADMISSION DIAGNOSES: 1. Right hip fracture. 2. Elevated blood pressure, probably hypertension. 3. S3 gallop, query significance. DISCHARGE DIAGNOSES: 1. Right-sided femoral neck fracture, status post bipolar hemiarthroplasty. 2. Elevated troponin. Ischemic workup, myocardial perfusion test only showed moderate defect, but was not reversible. It was scar, and Cardiology felt no further workup needed to be pursued. Most likely to be related to hypotension, which has since resolved. CONSULTATIONS: 1. Dr. Michi Clark for hip fracture. 2. Dr. Brendan Najera for elevated troponins and cardiac work with S3 gallop. SURGERIES AND PROCEDURES: On 10/23/2019, the patient had a right displaced femoral neck fracture with right bipolar hemiarthroplasty. No complications. Minimal blood loss. HOSPITAL COURSE: Ms. Erica Shepard is an 79-year-old female with a history of breast cancer, bilateral mastectomy. Apparently, she was walking down her malhotra, which was very poorly lit. She missed her footing and fell, landed on her right side, and hit her head. Denied loss of consciousness. Denied any respiratory or cardiac causes. She was able to get her phone, call EMS, was brought here. X-ray of the right hip showed a right intertrochanteric hip fracture. Dr. Clark was consulted, and she went for surgical repair. It was noted during the initial assessment that there was an S3 gallop heard. She also had elevated troponins, so Cardiology was consulted. A stress test was performed, which showed moderate defect, but with scar not reversible, and Cardiology felt like no further workup needed to be pursued, felt like it was mostly from hypotension at one point, and she would go home with aspirin, anticoagulation, and a beta heather. She continued with physical therapy, and is now [facility] DISCHARGE VITAL SIGNS: Temperature 97.3 degrees, heart rate 94, respiratory rate 18, blood pressure 126/67, O2 saturation 92% on room air. DISCHARGE LABORATORY DATA: White blood cells 10,000, hemoglobin 11, hematocrit 35, platelet count 195,000. On 10/25/2019, BMP showed sodium 138, potassium 4.3, BUN 21, creatinine 0.7, glucose 102, calcium 8.7. Magnesium 1.8. Troponin 45. MICROBIOLOGY: No microbiology. No blood transfused. PERTINENT IMAGING: On 10/23/2019, right hip x-ray showed femoral neck fracture. Chest x-ray: No injury, no pneumonia. On 10/24/2019, echocardiogram: Pulmonary pressure of 40 to 45, left ventricular ejection fraction around 55%, mild mitral regurgitation, mild tricuspid regurgitation, there was a tiny posterior pericardial effusion, and elevated CVP. On 10/25/2019, the myocardial perfusion scan showed no chest pain, [id number] sized fixed defect in the inferoapical wall suggestive of scar, inferior and apical hypokinesis. EKG on 10/23/2019: Sinus tachycardia, rate 115, QTc was 495. EKG on 10/25/2019: Sinus rhythm with PACs, rate 83, QTc 498. DISCHARGE MEDICATIONS: 1. Arimidex 1 mg p.o. daily. 2. Aspirin 81 mg p.o. daily. 3. Calcium carbonate 600 mg p.o. daily. 4. Centrum Silver 1 tablet p.o. daily. 5. Amitriptyline 25 mg p.o. daily. 6. Multivitamin 1 tablet p.o. daily. 7. Omeprazole 20 mg p.o. daily. 8. Simvastatin 40 mg p.o. nightly. 9. Oxycodone immediate-release 10 mg p.o. every 3 hours p.r.n. 10. Docusate sodium 100 mg p.o. twice daily. 11. Neurontin 300 mg p.o. twice daily. 12. Metoprolol 25 mg p.o. twice daily. 13. Lovenox 40 mg subcutaneously every 24 hours. 14. MiraLAX 17 grams p.o. daily. PHYSICIAN FOLLOWUPS: Dr. Brendan Najera and Dr. Michi Clark. DISCHARGE ACTIVITY: No driving until directed by MD. No driving while taking pain medication. Activity with physical therapy. DISCHARGE DIET: Regular or heart healthy. WOUND CARE: Keep incision dry and clean. No submerging incision in water. DISCHARGE INSTRUCTIONS: If your condition changes, contact physician and/or return to the emergency department. Changes may include, but are not limited to, shortness of breath, increased fatigue, excessive bleeding, unexplained weight loss or gain, unmanageable pain, signs or symptoms of infection. Please notify the physician for a fever of 101 or above, foul-smelling drainage from the incision, shortness of breath, chest pain, pain or swelling in your legs. DISCHARGE DISPOSITION: [facility]. Dictated by ELLI Maza for Kev Rdz MD cc: ELLI Maza MD
[2019-10-27] MEDS: COLACE PO SCH (13:25)
[2019-10-27] MEDS: SENOKOT PO SCH (13:26)
[2019-10-27] MEDS: MIRALAX PO SCH (13:26)
== END 2019-10-27 13:52 | disposition swing bed (61) | DRG 470 ==
LOC: ED 02:57 → SUATTDRO 05:28 → 4N 05:28
PROVIDERS: ATTEND Internal Medicine